=== PATIENT | female | born 1995 | race Two or more races ===

== ENCOUNTER 2018-04-24 19:38 | Emergency (ER) | payer SELFPAY ==
[~2018-04-24] VITALS: Ht 149.9 cm; Wt 63.5 kg
[2018-04-24 19:54] VITALS: BP 127/79
[2018-04-24] MEDS ORDERED: HYDROcodone/APAP 5/325MG 1 TAB TABLET PO ONE (20:00)
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
[2018-04-24] MEDS ORDERED: TRAM50TA PO (21:29)
--- NOTE | 2018-04-25 09:35 | RAD ---
Left forearm, 2 views, 04/24/2018: HISTORY: Fall, pain No fracture is identified. A linear lucency projected over the triquetrum is probably due to overlying soft tissue shadow. There is mild subcutaneous edema. IMPRESSION: No acute bony abnormality is detected. Electronically signed by: Guerrero Pop MD (04/25/2018 9:31 AM) [facility]
== END 2018-04-24 21:34 | disposition home or self-care (01) ==
LOC: ER 19:38
DX: S50.12XA Contusion of left forearm, initial encounter (principal); W03.XXXA Other fall on same level due to collision with another person, initial encounter; Y93.89 Activity, other specified; Y92.89 Other specified places as the place of occurrence of the external cause; Y99.8 Other external cause status
CPT/HCPCS: 73090; 99284